=== PATIENT | male | born 1960 | race Caucasian/White ===

== ENCOUNTER 2018-04-24 12:30 | Emergency (ER) | payer OTHER ==
[2018-04-24 12:41] VITALS: BP 175/98; PULSE 73; O2SAT 99
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
[2018-04-24] MEDS ORDERED: BACIGUENT PACKET ONE (13:38)
[2018-04-24] MEDS ORDERED: Augmentin 875-125 Tablet PO ONE (14:32)
[2018-04-24] MEDS ORDERED: Norco 10/325 MG Tablet PO ONE (14:33)
[2018-04-24] MEDS ORDERED: Augmentin 875-125 Tablet ONE ×2 (14:36→14:41)
[2018-04-24] MEDS ORDERED: Norco 10/325 MG Tablet ONE ×2 (14:37→14:41)
--- NOTE | 2018-04-24 21:34 | XRAY ---
Indication: Left facial injury with softball. Multiple contiguous axial images obtained through the facial bones. Sagittal and coronal reformatted images obtained. Comparison: None Patient is edentulous. Comminuted depressed fractures seen of the anterior, posterior, and medial llanos of the left maxillary sinus with overlying soft tissue swelling, subcutaneous air bubbles, and left maxillary sinus fluid leveling. Left orbit demonstrates minimal depressed fracture involving the floor without extraocular muscle entrapment. Also nondisplaced lateral orbital wall fracture. Also tiny cortical fracture involving the left zygomatic arch. Partial opacification of the left ethmoid sinus and left nasal passages presumably blood. Remaining paranasal sinuses and mastoid air cells are clear. Moderate nasal septal deviation to the left. Visualized cervical spine is intact. Impression: 1. Comminuted fractures involving the anterior, posterior, and medial llanos of the left maxillary sinus. Overlying soft tissue swelling and subcutaneous air bubbles. 2. Left orbit floor minimal depressed fracture and nondisplaced lateral wall fracture. 3. Tiny left zygomatic arch cortical fracture. Comment: Preliminary interpretation was made by [facility]. No discrepancy. CTDI 59.47
== END 2018-04-24 15:24 | disposition home or self-care (01) ==
LOC: ED 12:30
DX: S02.32XA Fracture of orbital floor, left side, initial encounter for closed fracture (principal); S02.40DA Maxillary fracture, left side, initial encounter for closed fracture; W21.07XA Struck by softball, initial encounter; Y93.64 Activity, baseball
CPT/HCPCS: 70486; 99284; A9270-GY